=== PATIENT | female | born 1995 | race African-American/Black ===

== ENCOUNTER 2017-05-29 04:52 | Inpatient (IN) ==
[2017-05-29] MEDS ORDERED: MEPERIDINE 50 MG/1 ML VIAL IV PRN (05:08)
[2017-05-29] MEDS ORDERED: BUTORPHANOL 2 MG/ML VIAL IV PRN (05:08)
[2017-05-29] MEDS ORDERED: ONDANSETRON 4 MG/2 ML VIAL IV PRN ×2 (05:08→11:41)
[2017-05-29] MEDS ORDERED: CITRIC ACID/SODIUM CITRATE 30 ML UDCUP PO PRN (05:10)
[2017-05-29] MEDS ORDERED: FAMOTIDINE 20 MG/2 ML VIAL IV PRN (05:11)
[2017-05-29] MEDS ORDERED: fentaNYL 2 MCG/ROPIV 0.2% EPID 150 ML EPIDURAL SCH (05:12)
[2017-05-29] MEDS ORDERED: ePHEDrine 50 MG/ML AMP IV PRN (05:13)
[2017-05-29] MEDS: LACTATED RINGERS 1,000 ML IV SCH ×3 (05:15→08:27)
[2017-05-29] MEDS: AMPICILLIN INJ 2,000 MG in SODIUM CHLORIDE 0.9% 100 ML IV SCH ×2 (05:28→10:59)
[2017-05-29 05:59] LABS: Basophils % 0.1 % (0.0-0.8); Hematocrit 39.3 VOL% (35.7-47.0); Hemoglobin 13.6 GM/DL (12.0-16.0); Immature Granulocytes % 0.6 %; Immature Granulocytes Absolute 0.06 #; Lymphocytes # 0.9 10*3/uL (1.4-4.0); Lymphocytes % 8.7 % (21.3-54.2); Mean Corpuscular HGB Conc 34.6 GM/DL (32-36); Mean Corpuscular Hemoglobin 29 PG (27-34); Mean Corpuscular Volume 84.7 FL (87-102); Mean Platelet Volume 11.7 FL (9.6-12.0); Monocytes # 0.3 10*3/uL (0.11-0.8); Monocytes % 2.8 % (1.7-12.7); Neutrophils # 8.8 10*3/uL (1.4-7.4); Neutrophils % 87.8 % (38.7-73.9); Platelet Count 105 T/CUMM (130-400); Red Blood Count 4.64 MC/CUMM (3.8-5.5); Red Cell Distribution Width 13.5 % (9.3-17.3); White Blood Count 10.1 T/CUMM (4-12)
[2017-05-29 06:44] LABS: Albumin 2.8 G/DL (3.4-5.0); Bilirubin,Total 0.4 MG/DL (0.2-1.0); Calcium 8.9 MG/DL (8.5-10.1); Total Protein 7.1 G/DL (6.4-8.3)
[2017-05-29 06:45] LABS: Osmolality,Calculated 271.7 MOS/KG (273-304); Potassium 3.8 MMOL/L (3.5-5.1)
--- NOTE | 2017-05-29 08:27 | OB/GYN History & Physical ---
History of Present Illness Chief complaint: Labor History of present illness: Ms. Collazo is a 22 year old female at 38 plus weeks who presented to L&D at ~0500 with complaints of labor. Found to be 5 cm with BBOW. Here yesterday and 1 cm. No issues with the . No medical or surgical history. R/B/A to delivery reviewed. Willing to proceed. Home Medications Medication Instructions Recorded Confirmed Type Vits #90/Iron Fum/FA 1 capsule PO DIRECTED 05/27/17 05/29/17 History [ Formula Tablet] Allergies Allergy/AdvReac Type Severity Reaction Status Date / Time No Known Allergies Allergy Unverified 05/27/17 23:24 Medical,Surgical,& Family Hx - Medical History HEENT: History of: Eye Problem (glasses) Reproductive: No history of: Ectopic , Complication Other: History of: Miscellaneous Medical Problems (right leg mole removal) - Surgical History Reproductive Surgeries: Patient denies;: Section - Family History Family History: Reports;: Family Diabetes (mgm), Family Hypertension Denies;: Family Anesthesia Reaction, Family Cancer, Family Heart Disease, Family Hematology, Family Psychiatric Problems, Family Stroke, Additional Family History - Social History Smoking Status: Never smoker Frequency of Alcohol Use: None Type of Drug Use: 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 General appearance: no acute distress - Head Head exam: Present: normocephalic - Eye Eye exam: Present: EOMI Pupils: Present: ESTEE - Respiratory Respiratory exam: Present: clear to auscultation bilaterally - Cardiovascular Cardiovascular exam: Present: regular rate and rhythm - GI/Abdominal GI/Abdominal exam: Present: soft (irregular contractions, FHTs reassuring) Assessment and Plan (1) 38 weeks gestation of Status: Acute Current Visit: Yes (2) Active labor at term Status: Acute Assessment and plan: Start pitocin Anticipate delivery Current Visit: Yes Results - Labs CBC & BMP: 05/29/17 05:46 05/29/17 05:46
[2017-05-29] MEDS ORDERED: OXYTOCIN/LR 20 UNIT/1,000 ML BAG IV SCH (08:30)
--- NOTE | 2017-05-29 09:41 | OB/GYN Progress Note ---
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 AROM clear, 790/0) Results - Labs CBC & BMP: 05/29/17 05:46 05/29/17 05:46
[2017-05-29] MEDS ORDERED: LIDOCAINE 1% 50 ML VIAL ONE (11:08)
[2017-05-29] MEDS ORDERED: miSOPROStol 200 MCG TABLET ONE (11:08)
[2017-05-29] MEDS ORDERED: LANOLIN 50% CREAM 0.3 OZ TUBE TOP PRN (11:41)
[2017-05-29] MEDS ORDERED: RHO(D) IMMUNE GLOBULIN 300 MCG SYRINGE IM ONE (11:41)
[2017-05-29] MEDS ORDERED: ACETAMINOPHEN 325 MG TABLET PO PRN (11:41)
[2017-05-29] MEDS ORDERED: HYDROCORTISONE 2.5% RECTAL CREAM 30 GM TUBE TOP PRN (11:41)
[2017-05-29] MEDS ORDERED: OXYTOCIN/LR 20 UNIT/1,000 ML BAG IV ONE (11:41)
[2017-05-29] MEDS ORDERED: WITCH HAZEL PADS 100/JAR TOP PRN (11:41)
[2017-05-29] MEDS ORDERED: BENZOCAINE 20%/MENTHOL 0.5% SPRAY 56 GM CAN TOP PRN (11:41)
[2017-05-29] MEDS ORDERED: MEASLES/MUMPS/RUBELLA VACCINE 0.5 ML VIAL SUBCUT ONE (11:41)
[2017-05-29] MEDS ORDERED: BISACODYL 10 MG SUPP RECTAL PRN (11:41)
[2017-05-29] MEDS ORDERED: DIPH/TET/ACEL PERT BOOSTER VACCINE 0.5 ML VIAL IM ONE (11:41)
--- NOTE | 2017-05-29 11:41 | Event Note ---
DELIVERY NOTE of female in [facility] presentation. Pushed for ~ 15 minutes. Epidural anesthesia. Waited 45 seconds to clamp cord. Weight, APGARS 9/9. Spontaneous delivery of intact placenta in timely fashion. EBL 300 cc. Repair of right periurethral laceration with a 3.0 on SH . NICU present for delivery. Mom and baby doing well with skin to skin.
--- NOTE | 2017-05-29 15:46 | Anesthesia Post-Op ---
Anesthesia Post OP - Post Ansesthetic Evaluation Patient seen in post op: Yes Resp: within normal limits CV: within normal limits Mental: within normal limits Temp: within normal limits [place]: within normal limits Nausea and Vomiting: within normal limits Pain: within normal limits
[2017-05-29] MEDS: DOCUSATE SODIUM 100 MG CAPSULE PO SCH (21:54)
[2017-05-29] MEDS: IBUPROFEN 800 MG TABLET PO SCH (22:54)
[2017-05-30 06:27] LABS: Basophils % 0.2 % (0.0-0.8); Eosinophils % 0.2 % (0.00-10.9); Hematocrit 38.8 VOL% (35.7-47.0); Immature Granulocytes % 0.6 %; Immature Granulocytes Absolute 0.06 #; Lymphocytes # 2.1 10*3/uL (1.4-4.0); Mean Corpuscular HGB Conc 33.5 GM/DL (32-36); Mean Corpuscular Hemoglobin 29 PG (27-34); Mean Corpuscular Volume 85.3 FL (87-102); Mean Platelet Volume 11.7 FL (9.6-12.0); Monocytes # 0.7 10*3/uL (0.11-0.8); Monocytes % 6.5 % (1.7-12.7); Neutrophils % 73.5 % (38.7-73.9); Platelet Count 158 T/CUMM (130-400); Red Blood Count 4.55 MC/CUMM (3.8-5.5); Red Cell Distribution Width 13.6 % (9.3-17.3); White Blood Count 10.8 T/CUMM (4-12)
--- NOTE | 2017-05-30 08:17 | OB/GYN Progress Note ---
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 - Constitutional Vitals: Vital Signs Temp Pulse Pulse Resp BP BP Pulse Ox 05/30/17 07:26 97.1 F L 71 18 104/63 98 05/30/17 05:52 18 05/30/17 03:47 97.4 F L 71 24 108/61 97 05/30/17 02:00 16 05/30/17 00:00 96.9 F L 80 18 124/68 97 05/29/17 19:15 97.9 F 102 H 20 107/62 96 05/29/17 16:07 97.7 F 104 H 20 119/68 98 05/29/17 15:15 105 H 20 121/69 98 05/29/17 14:15 90 18 123/72 99 05/29/17 13:45 92 H 18 127/75 99 05/29/17 13:15 98.4 F 84 18 117/67 99 05/29/17 12:00 98.8 F 83 20 103/58 99 General appearance: no acute distress - Head Head exam: Present: normocephalic - Eye Eye exam: Present: EOMI Pupils: Present: ESTEE - GI/Abdominal GI/Abdominal exam: Present: soft. Absent: tenderness Results - Labs CBC & BMP: 05/30/17 05:46 05/29/17 05:46
[2017-05-30] MEDS: IBUPROFEN 800 MG TABLET PO SCH ×4 (08:27→20:24)
[2017-05-30] MEDS: DOCUSATE SODIUM 100 MG CAPSULE PO SCH ×2 (08:27→20:24)
[2017-05-31] MEDS: IBUPROFEN 800 MG TABLET PO SCH (06:55)
[2017-05-31 07:47] VITALS: BP 118/74
--- NOTE | 2017-05-31 08:21 | Discharge Summary ---
Hospital Course - Hospital Course Hospital Course: Routine course. Pt feels well this morning and is ready to go home. Diagnosis - Discharge Diagnosis (1) 38 weeks gestation of Status: Acute (2) Active labor at term Status: Acute (3) Encounter for full-term uncomplicated delivery Status: Acute Specialty Discharge - Follow Up or Referrals Discharge Plan - Discharge Data Disposition: Disch To Home/Self Care Condition at Discharge: Stable Discharge Diet: advance to your usual diet Activity: other (routine ) Hygiene: may shower Weight Bearing at Discharge: full weight bearing Driving: no restrictions Contact your physician if you experience:: fever over 101, Difficulty voiding - Discharge Medications New Docusate Sodium Cap [Colace Cap] 100 mg PO BID #20 capsule Ibuprofen Tab [Motrin Tab] 800 mg PO Q8H #20 tablet No Action Vits #90/Iron Fum/FA [ Formula Tablet] 1 capsule PO DIRECTED - Follow Up or Referral - Forms/Instructions Instructions: Perineal Care (DC), Vaginal Delivery (DC), Bleeding (DC) Exam - Constitutional Vitals: Period Temp Pulse Resp BP Sys/Mazariegos Pulse Ox Last 24 Hr 97.1 F-98.9 F 66-88 18-20 114-127/61-75 95-98 General appearance: no acute distress - Head Head exam: Present: normal inspection, normocephalic - Eye Eye exam: Present: EOMI Pupils: Present: ESTEE - GI/Abdominal GI/Abdominal exam: Present: soft. Absent: tenderness DS: Provider Date of admission: 05/29/17 05:09 Primary care physician: . No PCP Attending physician on admission: Yulia Graff MD Consults: 05/29/17 11:41 Consult to Golf Course Patroller [CONS] Routine Consult Golf Course Patroller: Breast Feeding Discharging clinician: Yulia Graff MD
[2017-05-31] MEDS: DOCUSATE SODIUM 100 MG CAPSULE PO SCH (08:29)
== END 2017-05-31 11:48 | disposition home or self-care (01) | DRG 775 ==
LOC: N.LDOUT 04:52 → N.LD 04:55 → N.OB 13:15
PROVIDERS: ADMIT Obstetrics & Gynecology; ATTEND Obstetrics & Gynecology